=== PATIENT | male | born 1945 | race Caucasian/White ===

== ENCOUNTER 2016-07-13 06:25 | Day surgery (SDC) | payer BC ==
--- NOTE | ~2016-07-13 | EGD ---
EGD REPORT [facility] [address] [id number] NAME: RUBEN TUCKER : [birth year] STATUS : REG [facility] PAT#: [id number] AGE: 71 ADM/REG DATE : 07/13/16 MR#: [id number] REPORT SERV DATE: 07/13/16 DICTATED BY: WES DC DATE: 07/13/16 REPORT STATUS : Draft TRANSCRIBED BY: [facility] DATE: 07/13/16 End[facility] Patient Name: Ruben Tucker Date of : 1945 Attending MD: WES DC MD Procedure Date No Time: 07/13/2016 Procedure: Colonoscopy Indications: High risk colon cancer surveillance: Personal history of colonic polyps Referring MD: TEJ ABAD MD Medicines: as per anesthesia Complications: No immediate complications. Procedure: Pre-Anesthesia Assessment: - ASA Grade Assessment: I - A normal, healthy patient. After I obtained informed consent, the scope was passed under direct vision. Throughout the procedure, the patient's blood pressure, pulse, and oxygen saturations were monitored continuously. The PCF [id number] was introduced through the anus and advanced to the ileocolonic anastomosis. The colonoscopy was performed without difficulty. The patient tolerated the procedure. The quality of the bowel preparation was adequate to identify polyps. Findings: The perianal and digital rectal examinations were normal. There was evidence of a prior end-to-side ileo-colonic anastomosis in the transverse colon. This was patent. This was characterized by healthy appearing mucosa. A sessile polyp was found in the transverse colon. The polyp was 3 mm in size. The polyp was removed with a cold biopsy forceps. Resection and retrieval were complete. A sessile polyp was found in the descending colon. The polyp was 3 mm in size. The polyp was removed with a cold biopsy forceps. Resection and retrieval were complete. Multiple small and large-mouthed diverticula were found in the sigmoid colon and in the descending colon. Internal hemorrhoids were found during endoscopy and were mild. Impression: - Patent end-to-side ileo-colonic anastomosis. - One 3 mm polyp in the transverse colon. Resected and retrieved. - One 3 mm polyp in the descending colon. Resected and retrieved. - Diverticulosis in the sigmoid colon and in the EGD REPORT [place] [id number] [facility] [place]. [address] NAME: RUBEN TUCKER THUY : [birth year] STATUS : [facility]#: [id number] AGE: 71 ADM/REG DATE : 07/13/16 MR#: [id number] REPORT SERV DATE: 07/13/16 DICTATED BY: WES DC DATE: 07/13/16 REPORT STATUS : Draft TRANSCRIBED BY: [facility] DATE: 07/13/16 descending colon. - Internal hemorrhoids. Recommendation: - Await pathology results. - Repeat colonoscopy for surveillance based on pathology results. Procedure Code(s): --- Professional --- 78239, Colonoscopy, flexible, proximal to splenic flexure; with biopsy, single or multiple Diagnosis Code(s): --- Professional --- Z98.0, Intestinal bypass and anastomosis status D12.4, Benign neoplasm of descending colon D12.3, Benign neoplasm of transverse colon K64.8, Other hemorrhoids K57.30, Diverticulosis of large intestine without perforation or abscess without bleeding Z86.010, Personal history of colonic polyps CPT copyright 2013 [employer]. All rights reserved. The codes documented in this report are preliminary and upon produce inspector review may be revised to meet current compliance requirements. WES DC MD 07/13/2016 8:52 AM This report has been signed electronically. Number of Addenda: 0 Note Initiated On: 07/13/2016 8:04 AM Scope Withdrawal Time 0 hours 13 minutes 26 seconds [id number] [id number]
[~2016-07-13 06:25] MED LIST: *DENIES; DEXAMETHASONE T; LOTEMAX5 GM OPH; NEOMYCIN T; POLYMYXIN B T
== END 2016-07-13 23:59 | disposition home health service (06) ==
LOC: DMU 06:25
PROVIDERS: Internal Medicine Gastroenterology
PROC: 0DBL8ZX Excision of Transverse Colon, Via Natural or Artificial Opening Endoscopic, Diagnostic (ICD-10-PCS; 2016-07-13)
PROC: 0DBM8ZX Excision of Descending Colon, Via Natural or Artificial Opening Endoscopic, Diagnostic (ICD-10-PCS; principal; 2016-07-13 08:00)
DX: D12.3 Benign neoplasm of transverse colon (principal); D12.4 Benign neoplasm of descending colon; K64.8 Other hemorrhoids; K57.30 Diverticulosis of large intestine without perforation or abscess without bleeding; E78.00 Pure hypercholesterolemia, unspecified; Z98.0 Intestinal bypass and anastomosis status; Z86.010 Personal history of colon polyps; Z98.890 Other specified postprocedural states
CPT/HCPCS: 88305